=== PATIENT | male | born 1995 | race African-American/Black ===

== ENCOUNTER 2017-07-28 17:29 | Emergency (ER) | payer OTHER ==
[~2017-07-28] VITALS: Ht 185.4 cm; Wt 75.0 kg
[2017-07-28 17:32] VITALS: BP_SYST 110; BP_SYST 138; BP_DIAS 68; BP_DIAS 77; PULSE 106; PULSE 81; RESP 12; RESP 14; TEMP 97.9; TEMP 99.2; O2SAT 98
[2017-07-28] MEDS ORDERED: IBUPROFEN 600 MG TAB PO ONE (17:45)
--- NOTE | 2017-07-28 17:49 | PD ---
HPI Chief Complaint: Injury Time Seen by Provider: 17:38 Travel History International Travel<30 days: No Contact w/Intl Traveler<30days: No Traveled to known affect area: No History of Present Illness HPI 22-year-old male here for evaluation of left knee pain after an injury while playing basketball at around 3:00 PM today. The patient reports a twisting injury to his left knee. He is unsure if there was any direct trauma. He was able to drive himself to the emergency department. He denies any other injuries. Pain is severe, constant, worse with movement, palpation, and weightbearing. He denies left ankle or hip pain. He has not taken anything for the pain. PFSH Social History Tobacco Use: No Allergies-Medications (Allergen,Severity, Reaction): Coded Allergies: No Known Allergies (Unverified , 07/28/17) Reported Meds & Prescriptions Reported Meds & Active Scripts Active Ibuprofen 600 Mg Tab 600 Mg PO Q6H PRN 10 Days Hydrocodone-Acetaminophen 5-325 mg Tab 1 Tab PO Q6H PRN Review of Systems Except as stated in HPI: all other systems reviewed are Neg Physical Exam Narrative GENERAL: Well-developed, well-nourished, comfortable, no apparent distress. SKIN: Focused skin assessment warm/dry. No lacerations, abrasions, or ecchymosis. HEAD: Atraumatic. Normocephalic. CARDIOVASCULAR: Regular rate and rhythm. Bilateral posterior tibialis pulses are brisk and equal. RESPIRATORY: No accessory muscle use. MUSCULOSKELETAL: Left knee with significant diffuse swelling and tenderness. No warmth or erythema. Patient is able to flex the left knee to about 90 and is unable to go further secondary to pain. He is able to extend his knee. Anterior drawer test shows no laxity. There is no valgus or varus laxity. No patellar apprehension. All compartments in the left lower extremity are supple. NEUROLOGICAL: Awake and alert. No obvious cranial nerve deficits. Motor grossly within normal limits. Normal speech. Normal sensation in bilateral lower extremities. PSYCHIATRIC: Appropriate mood and affect; insight and judgment normal. Data Data Last Documented VS Vital Signs Date Time Temp Pulse Resp B/P (MAP) Pulse Ox O2 Delivery O2 Flow Rate FiO2 07/28/17 19:42 07/28/17 18:25 18 Room Air 07/28/17 17:32 97.9 81 98 Orders Orders Knee, Complete (4vws) (07/28/17 ) Ibuprofen (Motrin) (07/28/17 17:45) Ct Knee W/O Contrast (07/28/17 ) ^ Knee Immobilizer (07/28/17 19:24) Crutches (07/28/17 19:24) Ed Discharge Order (07/28/17 19:28) MDM Medical Decision Making Medical Screen Exam Complete: Yes Emergency Medical Condition: Yes Differential Diagnosis Left knee ligamentous injury, left knee fracture, left knee contusion, left knee strain/sprain Narrative Course Left knee x-ray: CONCLUSION: 1. Suspected fracture involving the medial tibial plateau best appreciated on the lateral projection. 2. Moderate size joint effusion. CT of the left knee will be ordered to further evaluate for possible tibial plateau fracture. CT left knee: CONCLUSION: 1. Acute nondepressed fracture involving the medial tibial plateau with large joint effusion. Case discussed with on-call orthopedist Dr. Wang who is recommending knee immobilizer placement, crutches, nonweightbearing, and follow-up in his office in one week. Patient was made aware of x-ray and CT findings and of plan. YESSENIA endorsed. He was advised on when to return to the emergency department. He verbalizes understanding and agreement with plan. Diagnosis Primary Impression: Left medial tibial plateau fracture Qualified Codes: S82.132A - Displaced fracture of medial condyle of left tibia , initial encounter for closed fracture Referrals: Mick Wang Jr., MD 1 week Orthopedist Additional Instructions: Follow-up with orthopedist Dr. Wang this week. Take ibuprofen every 6-8 hours. Take Lortab for extreme pain. Do not give this medication to anybody use. Do not drink alcohol, drive, or operate heavy machinery while using this medication. Return to the emergency department for worsening symptoms or any other concerns. Scripts Ibuprofen (Ibuprofen) 600 Mg Tab 600 MG PO Q6H Y for Pain/Inflammation for 10 Days, #40 TAB 0 Refills Prov: Pino Richmond MD 07/28/17 Hydrocodone-Acetaminophen (Hydrocodone-Acetaminophen) 5-325 mg Tab 1 TAB PO Q6H Y for PAIN, #15 TAB 0 Refills Prov: Pino Richmond MD 07/28/17 Disposition: 01 DISCHARGE HOME Condition: Stable Pino Richmond MD Jul 28, 2017 17:49
--- NOTE | 2017-07-28 18:13 | RADRPT ---
EXAM DATE/TIME: 07/28/2017 17:56 [facility] COMPARISON: No previous studies available for comparison. INDICATIONS : Injured after playing basketball. MEDICAL HISTORY : None. SURGICAL HISTORY : None. ENCOUNTER: Initial ACUITY: 1 day PAIN SCORE: 7/10 LOCATION: Left Knee. FINDINGS: Four view examination of the left knee demonstrates no evidence of dislocation. There is a linear [place] ency involving the cortex of one of the tibial plateaus seen on the lateral projection. I feel this r elates to the medial tibial plateau although it is occult on the frontal projections. Bony mineraliza tion is normal. The articular surfaces are intact. A moderate sized joint effusion. CONCLUSION: 1. Suspected fracture involving the medial tibial plateau best appreciated on the lateral projection. 2. Moderate size joint effusion. Mil Watkins Jr., MD on July 28, 2017 at 18:08 Board Certified Radiologist. This report was verified electronically.
--- NOTE | 2017-07-28 19:10 | RADRPT ---
EXAM DATE/TIME: 07/28/2017 18:53 [facility] COMPARISON: No previous studies available for comparison. INDICATIONS : Left knee, injury during basketball. RADIATION DOSE: 5.12 CTDIvol (mGy) MEDICAL HISTORY : None SURGICAL HISTORY : ENCOUNTER: Initial ACUITY: 1 day PAIN SCALE: 8/10 LOCATION: Left Mid knee TECHNIQUE: Volumetric scanning of the knee was performed. Using automated exposure control and adjustment of th e mA and/or kV according to patient size, radiation dose was kept as low as reasonably achievable to obtain optimal diagnostic quality images. DICOM format image data is available electronically for re view and comparison. FINDINGS: An acute nondisplaced and nondepressed fracture involving the medial tibial plateau. The remaining [place] structures are intact. In particular, the medial femoral condyle is unremarkable. A large joint ef fusion is noted. CONCLUSION: 1. Acute nondepressed fracture involving the medial tibial plateau with large joint effusion. Mil Watkins Jr., MD on July 28, 2017 at 19:07 Board Certified Radiologist. This report was verified electronically.
[2017-07-28] MEDS ORDERED: HYDR-3516 PO (19:28)
[2017-07-28] MEDS ORDERED: IBUP-232 PO (19:28)
== END 2017-07-28 20:14 | disposition home or self-care (01) ==
LOC: NEPD 17:29
DX: S82.142A Displaced bicondylar fracture of left tibia, initial encounter for closed fracture (principal); Y93.67 Activity, basketball; X58.XXXA Exposure to other specified factors, initial encounter
CPT/HCPCS: 73564; 73700; 99284; E0113